=== PATIENT | female | born 1990 | race Hispanic/Latino ===

== ENCOUNTER 2021-01-30 01:21 | Emergency (ER) | payer OTHER ==
[~2021-01-30] VITALS: Ht 170.2 cm; Wt 51.3 kg
[2021-01-30] MEDS ORDERED: LORAZEPAM 1 MG TAB PO PRN (01:45)
[2021-01-30] MEDS ORDERED: AMBIEN5 MG PO (01:50)
[2021-01-30] MEDS ORDERED: LORAZEPAM 0.5 MG TAB ONE (01:56)
[2021-01-30 02:28] VITALS: BP 148/82
== END 2021-01-30 02:28 | disposition home or self-care (01) ==
LOC: FSED 01:49
DX: G47.00 Insomnia, unspecified (principal); G80.9 Cerebral palsy, unspecified
CPT/HCPCS: 99283